=== PATIENT | female | born 1980 | race African-American/Black ===

== ENCOUNTER 2021-11-16 03:46 | Inpatient (IN) | payer BC, SELFPAY ==
[2021-11-16] VITALS (21 sets, daily range): BP systolic 155–190; BP diastolic 98–137; PULSE 80–106; RESP 17–27; TEMP 36.1–37.3; O2SAT 97–100; BMI 45.4
--- NOTE | ~2021-11-16 | MR_ITS ---
EXAMINATION: MR MRCP wo/w con/w 3D wo ind DATE: 11/17/2021 12:13 INDICATION: Liver mass. Abnormal liver function tests. TECHNIQUE: Magnetic resonance imaging (MRI) of the abdomen was performed without and with 20 mL Multi Leobardo intravenous contrast. Sequences included coronal T2-weighted FS FSE, coronal T2-weighted FSE, a xial T1-weighted LAVA, coronal FS FIESTA, axial dual-echo T1-weighted SPGR, coronal lava-FLEX, sagitt al T2-weighted FSE, axial T2-weighted FSE, and axial DWI. Thick-slab T2-weighted FSE images were obta ined for magnetic resonance cholangiopancreatography (MRCP). Maximum intensity projection 3-D reconst ructions of the volumetric data were created by the technologist. Postcontrast sequences included cor onal LAVA-flex and time course of axial T1-weighted LAVA. COMPARISON: CT abdomen and pelvis 11/16/2021, ultrasound 11/16/2021 FINDINGS: ABDOMEN MRI: There are trace pleural effusions. Cardiomegaly is noted. No pericardial effusion. There are cysts in the liver measuring up to 14 mm. There is sludge in the gallbladder, which is normal in size. The spleen, pancreas, adrenal glands, and kidneys are normal. There are no dilated loops of deb wel. There are no pathologically enlarged lymph nodes. There is no free intraperitoneal fluid. There are multiple uterine fibroids measuring up to 7.6 cm. ABDOMEN MRCP: The common duct is normal and measures 4 mm. IMPRESSION: 1. Benign cysts in the liver. Reviewed, dictated and finalized at location A.
--- NOTE | ~2021-11-16 | CT_ITS ---
EXAMINATION: CT abdomen pelvis wo con DATE: 11/16/2021 08:44 INDICATION: Upper abdominal pain. Nausea and vomiting. Kidney stone. TECHNIQUE: Computed tomography (CT) of the abdomen and pelvis was performed without intravenous contr ast. Automated exposure control and iterative reconstruction technique were employed. Exam dose: 118 9.97 mGy-cm total exam DLP. COMPARISON: None. FINDINGS: Cardiomegaly. Trace pericardial effusion. Mild bilateral pleural effusions, right greater t taveras left. 5 mm right lower lobe pulmonary nodule. There is atelectasis at the lung bases, greater on the left. There is edema of the abdominal and pelvic sawant. Large lipoma of the right parasagittal lower back., Measuring up to approximately 5 x 10 cm maximal d imension. There are scattered occasional indeterminate hypoattenuating up to 10 mm lesions of the liver. These might be hepatic cysts. Consider further evaluation with IV contrast CT examination or MRI. The gallbladder is present. There may be gallbladder wall thickening. No pericholecystic fluid or fat stranding. Consider gallbladder ultrasound for more definitive evaluation of the gallbladder, partic ularly given the complaint of upper abdominal pain and nausea and vomiting. No bile duct dilatation is detected. No pancreatic mass lesion, calcification or ductal dilatation. Normal splenic size. Normal morphology of the adrenal glands. No urinary tract calculus or hydroureteronephrosis. No renal space occupying mass lesion is evident o n this limited noncontrast examination. The urinary bladder is unremarkable. There is atherosclerotic calcification but normal caliber of the abdominal aorta and iliac arteries. No intraperitoneal or retroperitoneal or pelvic mass lesion or adenopathy is noted with the exception of a 5.5 cm left adnexal soft tissue mass, likely of ovarian origin. Differential diagnosis includes large serosal uterine fibroid. Consider pelvic ultrasound for further evaluation. The uterus is enlarged, measuring up to 13 cm height and 6.3 cm AP dimension. No bowel obstruction or intraperitoneal free air. Very small fat-containing umbilical hernia. 1.4 cm osteosclerotic lesion of L4, likely a bone island. Lumbar spinal stenosis. IMPRESSION: Cardiomegaly, mild bilateral pleural effusions, edema of the abdominal and pelvic sawant, consistent with probable congestive heart failure Trace pericardial effusion 5 mm right lower lobe pulmonary nodule Atelectasis at the lung bases, greater on the left Possible thickening of the gallbladder wall; gallbladder would be better evaluated by ultrasound exam ination No urinary tract calculus or hydroureteronephrosis Enlarged uterus 5.5 cm left adnexal soft tissue mass; diffusion diagnosis includes ovarian mass and subserosal uterin e fibroid; consider pelvic ultrasound examination Lumbar spinal stenosis Probable 1.4 cm bone island of L4 Reviewed, dictated and finalized at Location [facility]. Reviewed, dictated and finalized at location A. IMPRESSION: Cardiomegaly, mild bilateral pleural effusions, edema of the abdom inal and pelvic sawant, consistent with probable congestive heart failure Trace pericardial effusion 5 mm right lower lobe pulmonary nodule Atelectasis at the lung bases, greater on the left Possible thickening of the gallbladder wall; gallbladder would be better evalua gabbi by ultrasound examination No urinary tract calculus or hydroureteronephrosis Enlarged uterus 5.5 cm left adnexal soft tissue mass; diffusion diagnosis includes ovarian mass and subserosal uterine fibroid; consider pelvic ultrasound examination Lumbar spinal stenosis Probable 1.4 cm bone island of L4
--- NOTE | ~2021-11-16 | US_ITS ---
EXAMINATION: US pelvic complete DATE: 11/16/2021 14:08 INDICATION: Left adnexal mass Comparison:CT dated 11/16/2021 TECHNIQUE: Multiple transabdominal and endovaginal sonographic images of the pelvis performed. FINDINGS: The uterus measures 10.9 x 7.2 x 9.2 cm. Uterine echotexture is heterogeneous. There is an exophytic mass projecting from the uterus measuring 7.5 x 6 x 5.2 cm, consistent with uterine fibroid . There are multiple additional smaller fibroids. The endometrial complex measures 2.5. The right ovary measures 4.7 x 2.9 x 4.5 cm and the left ovary measures 2.6 x 4.4 x 3 cm. There are small follicles in each ovary. Normal doppler signal in both ovaries. There is no free fluid in the pelvis. There are no abnormal masses seen on either side. IMPRESSION: 1. Enlarged fibroid uterus, largest being exophytic measuring up to 7.5 cm, likely corresponding to t he recent CT finding. Reviewed, dictated and finalized at location A. IMPRESSION: 1. Enlarged fibroid uterus, largest being exophytic measuring up to 7.5 cm, lik broderick corresponding to the recent CT finding.
--- NOTE | ~2021-11-16 | US_ITS ---
EXAMINATION: 1. US FNA w image guidance 2. US FNA additional DATE: 11/18/2021 15:49 INDICATION: Thyroid nodules TECHNIQUE: The procedure and its benefits and risks were discussed with the patient. Risks specifically discusse d included bleeding. The patient verbalized understanding of the risks and agreed to proceed. The nec k was prepped and draped in the usual sterile manner. 1% lidocaine was used for local anesthesia. 6 passes were made with a 25G needle into the lesion in right thyroid lobe under ultrasound guidance. 6 passes were made with a 25-gauge needle into the lesion in left thyroid lobe under ultrasound joyce nce. There were no immediate complications. FINDINGS: Grayscale ultrasound images demonstrate needles advanced into a 1.7 cm nodule in right thyroid lobe f or biopsy. Grayscale ultrasound images demonstrate needles advanced into a 2.6 cm nodule in left thyr oid lobe for biopsy. IMPRESSION: 1. Ultrasound-guided fine needle aspiration of a right thyroid nodule. 2. Ultrasound-guided fine-needle aspiration of a left thyroid nodule. Reviewed, dictated and finalized at location A. IMPRESSION: 1. Ultrasound-guided fine needle aspiration of a right thyroid nodule. 2. Ultrasound-guided fine-needle aspiration of a left thyroid nodule.
--- NOTE | ~2021-11-16 | US_ITS ---
US abdomen limited INDICATION: Evaluate for cholecystitis. Abdominal pain. PROCEDURE: Realtime right upper abdominal ultrasound. COMPARISON: No prior studies for comparison. FINDINGS: The pancreas is normal without focal mass or pancreatic ductal dilation. There are multipl e hypoechoic masses of the liver, largest measuring 1.4 x 1.3 x 0.9 cm anteriorly. There is normal d irectional flow in the portal vein. Gallbladder wall is thickened measuring 7.5 mm. Common bile duct measures 5 mm. There is mild intrah epatic biliary dilatation. No sonographic Cantrell's sign. IMPRESSION: 1: Small hypoechoic masses of the liver, nonspecific, largest measuring up to 1.4 cm. Recommend corre lation with contrast-enhanced MRI for further assessment. 2: Mild gallbladder wall thickening. This could indicate interstitial edema, chronic liver disease or chronic cholecystitis. 3: Mild intrahepatic biliary dilatation. Reviewed, dictated and finalized at location A. IMPRESSION: 1: Small hypoechoic masses of the liver, nonspecific, largest measuring up to 1 .4 cm. Recommend correlation with contrast-enhanced MRI for further assessment. 2: Mild gallbladder wall thickening. This could indicate interstitial edema, ch ronic liver disease or chronic cholecystitis. 3: Mild intrahepatic biliary dilatation.
--- NOTE | ~2021-11-16 | XR_ITS ---
EXAMINATION: XR chest 2V DATE: 11/16/2021 04:30 INDICATION: Shortness of breath. Nausea. TECHNIQUE: Frontal and lateral views of the chest were obtained. COMPARISON: None. FINDINGS: There is no pneumonia, pleural effusion, or pneumothorax. Cardiomegaly is noted. IMPRESSION: 1. Cardiomegaly. Reviewed, dictated and finalized at location A. IMPRESSION: 1. Cardiomegaly.
--- NOTE | ~2021-11-16 | XR_ITS ---
XR chest 1V portable DATE: 11/16/2021 10:01 INDICATION: Congestive heart failure. Uncontrolled hypertension. TECHNIQUE: Portable upright AP chest on 11/16/2021 at 0955 hours COMPARISON: 11/16/2021 2 view chest FINDINGS: Cardiomegaly. Pulmonary vascular congestion and redistribution. Mild infiltrate or atelectasis at the lung bases. No pneumothorax. IMPRESSION: Cardiomegaly, congestive heart failure Mild bibasilar infiltrate or atelectasis Reviewed, dictated and finalized at location A.
--- NOTE | ~2021-11-16 | US_ITS ---
EXAMINATION: US thyroid DATE: 11/17/2021 12:33 INDICATION: Thyroid nodule. TECHNIQUE: Multiple ultrasound images of the thyroid were obtained. COMPARISON: None. FINDINGS: The right thyroid lobe measures 4.9 x 1.7 x 1.6 cm. The left thyroid lobe measures 5.7 x 1.9 x 2.2 c m. In the right thyroid lobe, there is a 1.7 cm solid, hypoechoic, wider than tall nodule with connie h margin without echogenic foci (TI-RADS TR4). In the left thyroid lobe, there is a 2.6 cm solid, hyp oechoic, wider than tall nodule with smooth margin and punctate echogenic foci (TR5). IMPRESSION: 1. Multinodular goiter. Ultrasound-guided fine-needle aspiration of 2 nodules is recommended. Reviewed, dictated and finalized at location A. IMPRESSION: 1. Multinodular goiter. Ultrasound-guided fine-needle aspiration of 2 nodules i s recommended.
[2021-11-16 04:13] LABS: Basophils Percent Auto 0.4 % (0.2-1.2); Eosinophils Absolute Auto 0.1 K/mm3 (0-0.3); Eosinophils Percent Auto 0.9 % (0-4.4); Hematocrit 35.6 % (37.0-47.0); Hemoglobin 9.6 g/dL (12.0-15.0); Immature Granulocyte Absolute 0.03 K/mm3 (0.00-0.031); Immature Granulocyte Percent A 0.3 % (0-0.5); Immature Platelet Fraction Pct 4.1 % (0.9-11.2); Lymphocytes Absolute Auto 0.88 K/mm3 (0.9-3.2); Lymphocytes Percent Auto 9.7 % (18.3-44.2); Mean Corpuscular Volume 74.2 fl (80-100); Mean Platelet Volume 10.4 fl (7.4-10.4); Monocytes Absolute Auto 0.8 K/mm3 (0.1-0.6); Monocytes Percent Auto 8.3 % (2.6-8.5); Neutrophils Absolute Auto 7.3 K/mm3 (1.3-6.7); Neutrophils Percent Auto 80.4 % (45.5-73.1); Platelet Count Result 329 k/mm3 (150-375); Red Cell Distribution Width 26.1 % (11.5-14.5)
[2021-11-16 04:22] LABS: Alanine Aminotransferase 44 U/L (6-35); Alkaline Phosphatase 137 U/L (38-126); Anion Gap 8 mmol/L (8-16); Aspartate Amino Transferase 52 U/L (14-36); Bilirubin,Total 1.3 mg/dL (0.2-1.3); Blood Urea Nitrogen 21 mg/dL (7-17); Calcium 8.7 mg/dL (8.4-10.2); Carbon Dioxide 24 mmol/L (22-30); Chloride 109 mmol/L (98-107); Estimated CRCL calculation 66 ml/min; Estimated Glomerular Filt Rate 50; Glucose 136 mg/dL (65-110); Potassium 4.3 mmol/L (3.4-5.0); Sodium 141 mmol/L (137-145)
--- NOTE | 2021-11-16 07:18 | ED.SOB ---
HPI - SOB/Dyspnea General Chief Complaint: Shortness of Breath/Dyspnea Stated Complaint: Shortness of Breath Time Seen by Provider: 11/16/21 07:18 Source: patient Mode of arrival: ambulatory Limitations: no limitations History of Present Illness HPI Narrative: 41 years old -[place] female presents with intermittent nausea, vomiting right lower quadrant pain since October 03, 2021. She denies any fever, chills, diarrhea, constipation, vaginal bleeding or discharge. History of hypertension, ran out of her medication over 1 year ago, also history of fibroid tumor. Patient does not smoke or drink or uses drugs.. Patient reports that she does not have pain on the outside surface of the abdomen but she feels like something is growing inside. Related Data Home Medications Medication Instructions Recorded Confirmed No Home Medications 11/16/21 11/16/21 Allergies Allergy/AdvReac Type Severity Reaction Status Date / Time cephalexin [From Keflex] Allergy Unknown Verified 11/16/21 08:35 Review of Systems Review of Systems: All systems reviewed & are unremarkable except as noted in HPI and below Exam Narrative: General appearance: Well-developed, well-nourished Skin: Normal color Head: Normocephalic, nontraumatic Eyes: Clear conjunctiva ENT: Oropharynx normal, ears normal, nose normal Neck: Supple, nontender Chest and respiratory: Airway patent, no respiratory distress, no accessory muscle use Heart: Regular rate/rhythm Abdomen: Soft, nontender, no organomegaly, quiet bowel sounds Vascular: Normal peripheral pulses, normal capillary refill. Musculoskeletal: Normal range of motion, nontender back Neurologic: Alert and oriented ?3, FLYING II INSTRUCTOR is normal as tested, no gross motor deficit Course Course Emergency Course: Patient arrived with shortness of breath and abdominal pain, work-up showed that the patient had congestive heart failure secondary to hypertension, elevated troponin secondary to CHF, bilateral pleural effusion and pericardial effusion secondary to CHF, left adnexal mass needs further evaluation, pelvic ultrasound, thick wall of the gallbladder, needs gallbladder ultrasound to rule out cholecystitis. Admit to IMU, consult Dr. Mazariegos Vital Signs Vital signs: Vital Signs Temperature 36.1 C L 11/16/21 03:54 Pulse Rate 106 H 11/16/21 03:54 Respiratory Rate 20 11/16/21 03:54 Blood Pressure 190/137 H 11/16/21 03:54 Pulse Oximetry 100 11/16/21 03:54 Oxygen Delivery Room Air 11/16/21 03:54 Temperature 36.1 C L 11/16/21 03:54 Pulse Rate 87 11/16/21 14:46 Respiratory Rate 22 H 11/16/21 14:46 Blood Pressure 173/98 H 11/16/21 14:46 Pulse Oximetry 100 11/16/21 14:46 Oxygen Delivery Room Air 11/16/21 07:48 MDM - SOB/Dyspnea MDM Narrative Medical decision making narrative: Appendicitis, fibroid tumor, constipation, urinary tract infection Lab Data Result diagrams: 11/16/21 04:02 11/16/21 04:02 Labs: Lab Results 11/16/21 11/16/21 11/16/21 Range/Units 04:02 04:02 04:02 WBC 9.0 (4.5-10.0) K/mm3 RBC 4.80 (4.2-5.4) M/mm3 Hgb 9.6 L (12.0-15.0) g/dL Hct 35.6 L (37.0-47.0) % MCV 74.2 L (80-100) fl MCH 20.0 L (26-34) pg MCHC 27.0 L (32-36) g/dl RDW 26.1 H (11.5-14.5) % Plt Count 329 (150-375) k/mm3 MPV 10.4 (7.4-10.4) fl Immature Gran % (Auto) 0.3 (0-0.5) % Neut % (Auto) 80.4 H (45.5-73.1) % Lymph % (Auto) 9.7 L (18.3-44.2) % [place] % (Auto) 8.3 (2.6-8.5) % Eos % (Auto) 0.9 (0-4.4) % Baso % (Auto) 0.4 (0.2-1.2) % Lymph # (Auto) 0.88 L (0.9-3.2) K/mm3 [place] # (Auto) 0.8 H (0.1-0
[2021-11-16] MEDS: LABETALOL HCL INJ 100 MG/20 ML VIAL 20 MG IV PUSH (08:22)
[2021-11-16] MEDS: NITROGLYCERIN OINTMENT 1 INCH DOSE TRANSDERM ×3 (08:24→17:48)
--- NOTE | 2021-11-16 09:33 | ECG_ITS ---
Measurements Intervals [place] Rate: 84 P: 31 DC: 143 QRS: 0 QRSD: 93 T: 136 QT: 371 QTc: 440 Interpretive Statements SINUS RHYTHM DELAYED PRECORDIAL R/S TRANSITION ST-T WAVE ABNORMALITY IN HIGH LATERAL LEADS- CONSIDER ISCHEMIA ABNORMAL ECG Electronically Signed On 11-16-2021 14:26:18 CDT by Gildardo Tsai D.O.
[2021-11-16 09:51] LABS: Alveolar/Arterial O2 Gradient 15.9 mmHg; Base Excess ABG -2.8 mEq/l (+/-2.0); Fractional Inspired Oxygen 21 %; HCO3 ABG 20.3 mEq/l (22.0-26.0); Oxygen Content ABG 14.6 %vol (16.0-22.0); Oxygen Saturation ABG 97.8 % (95.0-100.0); Oxyhemoglobin 95.9 % THb (90.0-100.0); PCO2 ABG 29.9 mmHg (35.0-45.0); PO2 FiO2 Ratio Arterial Blood 4.67 %; Total Hemoglobin 10.7 g/dL (12.0-18.0)
[2021-11-16 09:52] LABS: Device ROOM AIR; Modified Allen's Test Pass; Site Drawn RIGHT RADIAL
[2021-11-16 10:04] LABS: INR 1.3; Prothrombin Time 15.5 Seconds (11.1-14.7)
[2021-11-16 10:06] LABS: Partial Thromboplastin Time 31.1 SECONDS (22.3-36.8)
[2021-11-16 10:38] LABS: NT Pro B Type Natriuretic Pept 4060 pg/mL (5-100); Troponin I 0.047 ng/mL (0.000-0.034)
[2021-11-16 10:49] LABS: SARS-CoV-2 RNA PCR Negative
[2021-11-16] MEDS: ASPIRIN 81 MG CHEWABLE TABLET 324 MG PO (11:29)
[2021-11-16] MEDS: FUROSEMIDE INJ 100 MG/10 ML VIAL 80 MG IV PUSH (11:32)
[2021-11-16] MEDS: ENOXAPARIN 120 MG/0.8 ML SYRINGE 110 MG SUB-Q (14:00)
[2021-11-16 14:53] LABS: Troponin I 0.045 ng/mL (0.000-0.034)
[2021-11-16] MEDS: LORazepam INJ (*CRX) 2 MG/ML VIAL 1 MG IV PUSH (16:38)
[2021-11-16 17:17] LABS: Troponin I 0.047 ng/mL (0.000-0.034)
--- NOTE | 2021-11-16 17:50 | PM.IMHP ---
H&P: HPI History of Present Illness Date/Time: 11/16/21 17:50 Chief Complaint: Shortness of breath Narrative: 32yo female with HTN here for shortness of breath. Patient has had shortness of breath since she was diagnosed with COVID May 2021. She did not seek medical care. She was vaccinated 1 year ago but has not been boosted. Since that time, she has noted progressive worsening shortness of breath with exertion to the poinit she has difficulty walking 10 ft. Patient still has a dry nonproductive cough that occurs when she exerts herself. More recently patient has developed nausea and vomiting associated with her menstrual cycle and abdominal cramping. She was seen at [place] on October 02 in the ED. She states no evaluation was done but that she was discharged with Gas-X and Zofran. She did see her doctor in October and battery labs was performed which showed that she was anemic with a hemoglobin of 7.8. Patient was started on iron. Blood pressure at that visit was 132/88. She mentioned that the time that she used to be on hydrochlorothiazide but has been off for about a year. Primary care doctor however did not resume any antihypertensive medications at that time. The patient does check her blood pressure at home and has been running 130-140/80-90 in October. Last blood pressure was 143/84 on November 11. Patient more recently has developed right lower quadrant pain seems worse with sitting. She denies any fever or chills. No headaches. No chest pain. No pedal edema or calf pain. She did have 1 episode of palpitations early September for about an hour that improved when she used a cold towel. She did not seek medical care at that time. This has not recurred. The right lower quadrant pain seems worse with sitting. She is not on oral contraception. There has been no vaginal spotting between periods, vaginal discharge, melena, hematochezia, dysuria or hematuria. No diarrhea or constipation issues. She does have known uterine fibroids. She has been twice but had miscarriages both times at roughly 12 weeks. Patient presented this morning to the ED for the nausea, vomiting, right lower quadrant pain and shortness of breath. In the ED, blood pressure was 190/137 with pulse 106. She had a microcytic anemia with a hemoglobin 9.6. ABG was normal. BUN was 21 with a creatinine 1.2. AST and ALT were mildly elevated. BNP was 4000. Troponin is elevated 0.047 but flat on repeat. COVID test was negative. EKG showed normal sinus rhythm with delayed R-wave progression and ST T wave changes in lateral leads. Chest x-ray showed cardiomegaly. CT of the abdomen pelvis showed cardiomegaly, pericardial effusion, bilateral pleural effusions, right lower lobe pulmonary nodule, abdominal pelvic wall edema. Also of note was multiple liver lesions. The gallbladder wall was thickened. There is a 5.5 cm left adnexal soft tissue mass. And lumbar spinal stenosis. Repeat chest x-ray shows cardiomegaly and congestive heart failure. Pelvic ultrasound showed enlarged fibroid uterus which was felt to be what was seen on the CT scan. RUQ ultrasound showed a small hypoechoic masses of the liver largest being 1.4 cm. Mild gallbladder wall thickening and mild intrahepatic biliary ductal dilatation. She was treated with labetalol, Lasix, nitro paste and aspirin. She was given full-dose Lovenox once as well as Ativan. She was admitted to the IMU for further care. Patient was seen later in the evening and feels much better. The right lower quadrant pain has resolved. Review of Systems Review of Systems: All systems reviewed & are unremarkable except as noted in HPI and below PMFSH Past Medical History Medical History (Updated 11/16/21 @ 19:25 by Antonino Modi MD) HTN (hypertension), benign Iron deficiency anemia Surgical History Surgical History (Updated 11/16/21 @ 18:53 by Antonino Modi MD) No history of previous surgery Family History Fam
--- NOTE | 2021-11-16 17:55 | ADMGEN ---
This patient, Aditya Adams, was admitted to IMU Room 209-01. Patient/family oriented to hospital policies and general routines including ID bracelet, bed and alarms, visiting hours, pain management, procedures, bathroom and other care routines, personal items, smoking policy, room service/diet, and visiting hours. Information on how to activate the Rapid Response Team has been discussed. Patient/Family are encouraged to report perceived risks to care and to ask questions if they do not understand what they are told or what they should do.
[2021-11-16] MEDS: amLODIPine BESYLATE 5 MG TABLET PO (20:36)
[2021-11-16] MEDS: FUROSEMIDE INJ 40 MG/4 ML VIAL IV PUSH (20:36)
[2021-11-16 22:00] LABS: Appearance Urine Clear (Clear); Bilirubin Urine Negative (Negative); Blood Urine Negative (Negative); Color Urine Yellow (Yellow); Glucose Urine UA Negative (Negative); Ketones Urine Negative (Negative); Leukocyte Esterase Ur Negative LEU/UL (Negative); Nitrate Urine Negative (Negative); Protein Urine Negative (Negative); Urobilinogen Urine 0.2 mg/dL (<2.0)
[2021-11-16 22:03] LABS: Add Urine Microscopic? NO
[2021-11-17] VITALS (15 sets, daily range): BP systolic 154–176; BP diastolic 96–116; PULSE 79–102; RESP 14–28; TEMP 36.1–36.8; O2SAT 97–100
--- NOTE | 2021-11-17 | ECHO_ITS ---
Patient Info Name: Aditya Adams Age: 41 years : 1980 Gender: Female Ht: 62 in Wt: 248 lbs BSA: 2.29 m2 HR: 92 bpm BP: 173 / 110 mmHg Heart Rhythm: Sinus Rhythm Exam Date: 11/17/2021 8:50 AM Exam Location: [facility] Patient Status: Inpatient Admit Date: 11/16/2021 Staff Ordering Physician: Antonino Modi MD Compounder: Byron Cantrell, MARINA, RT Attending Provider: Antonino Modi MD Exam Type: CA echo dop color flow w con Study Info Indications I50.9 - Heart failure, unspecified Complete two-dimensional, color flow and Doppler transthoracic echocardiogram is performed with contrast to opacify the left ventricle and to improve the deliniation of the left ventricle endocardial borders. Strain analysis performed. Summary 1. Left ventricular chamber dimension is mildly enlarged. 2. Left ventricular systolic function is severely reduced, estimated at 30%. 3. There is moderately increased left ventricular wall thickness. 4. The left ventricular diastolic function is abnormal. 5. Global longitudinal strain is severely elevated at -7 %. 6. Left atrial chamber dimension is moderately enlarged. 7. There is no aortic valve stenosis. 8. There is mild to moderate mitral valve regurgitation. 9. There is mild tricuspid valve regurgitation. 10. Moderate pulmonary hypertension, estimated pulmonary arterial systolic pressure is 59 mmHg. 11. There is small pericardial effusion. Left Ventricle Left ventricular chamber dimension is mildly enlarged. Left ventricular systolic function is severely reduced, estimated at 30%. There is moderately increased left ventricular wall thickness. The left ventricular diastolic function is abnormal. Global longitudinal strain is severely elevated at -7 %. Right Ventricle Right ventricular chamber dimension is normal. Right ventricular systolic function is normal. Prominent moderator band. Left Atria Left atrial chamber dimension is moderately enlarged. Right Atria Right atrial chamber dimension is mildly enlarged. Aortic Valve The aortic valve is probable trileaflet. There is no aortic valve stenosis. There is no aortic valve regurgitation. Pulmonic Valve The pulmonic valve is not well visualized. There is trace pulmonic regurgitation. Mitral Valve The mitral valve has normal leaflets. There is mild to moderate mitral valve regurgitation. Tricuspid Valve The tricuspid valve leaflets are normal. There is mild tricuspid valve regurgitation. Moderate pulmonary hypertension, estimated pulmonary arterial systolic pressure is 59 mmHg. Pericardium/Pleural The pericardium appears normal. There is small pericardial effusion. Inferior Vena Cava Dilated inferior vena cava with <50% collapse upon inspiration consistent with elevated right atrial pressure, 10 mmHg. Aorta The aortic root size at the sinus of Valsalva is normal. Left Ventricular Outflow Tract Name Value Normal LVOT 2D LVOT Diameter 2.11 cm LVOT Doppler LVOT Peak Gradient 4 mmHg LVOT Mean Gradient 2 mmHg LVOT VTI
[2021-11-17] MEDS: NITROGLYCERIN OINTMENT 1 INCH DOSE TRANSDERM ×2 (00:14→06:36)
[2021-11-17 05:39] LABS: Basophils Percent Auto 0.4 % (0.2-1.2); Eosinophils Absolute Auto 0.2 K/mm3 (0-0.3); Eosinophils Percent Auto 1.8 % (0-4.4); Hematocrit 32.9 % (37.0-47.0); Hemoglobin 9.2 g/dL (12.0-15.0); Immature Granulocyte Absolute 0.03 K/mm3 (0.00-0.031); Immature Granulocyte Percent A 0.4 % (0-0.5); Immature Platelet Fraction Pct 4.3 % (0.9-11.2); Lymphocytes Absolute Auto 1.28 K/mm3 (0.9-3.2); Lymphocytes Percent Auto 15.4 % (18.3-44.2); Mean Corpuscular Hemoglobin 20.3 pg (26-34); Mean Corpuscular Volume 72.5 fl (80-100); Mean Platelet Volume 10.5 fl (7.4-10.4); Monocytes Absolute Auto 1.1 K/mm3 (0.1-0.6); Monocytes Percent Auto 12.7 % (2.6-8.5); Neutrophils Absolute Auto 5.8 K/mm3 (1.3-6.7); Neutrophils Percent Auto 69.3 % (45.5-73.1); Platelet Count Result 317 k/mm3 (150-375); Red Blood Count 4.54 M/mm3 (4.2-5.4); Red Cell Distribution Width 25.5 % (11.5-14.5); White Blood Count 8.3 K/mm3 (4.5-10.0)
[2021-11-17 05:57] LABS: Alanine Aminotransferase 36 U/L (6-35); Albumin Level 3.7 g/dL (3.5-5.1); Alkaline Phosphatase 116 U/L (38-126); Anion Gap 9 mmol/L (8-16); Aspartate Amino Transferase 31 U/L (14-36); Bilirubin,Total 2.1 mg/dL (0.2-1.3); Blood Urea Nitrogen 16 mg/dL (7-17); CRP 0.5 mg/dL (<1.0); Calcium 8.4 mg/dL (8.4-10.2); Carbon Dioxide 26 mmol/L (22-30); Chloride 102 mmol/L (98-107); Estimated CRCL calculation 67 ml/min; Estimated Glomerular Filt Rate > 60; Glucose 78 mg/dL (65-110); Magnesium 1.7 mg/dL (1.6-2.3); Potassium 3.3 mmol/L (3.4-5.0); Sodium 137 mmol/L (137-145)
[2021-11-17 06:27] LABS: Iron 24 ug/dL (37-170)
[2021-11-17 06:33] LABS: Hypochromasia 1+ (NORMAL); Platelet Estimate Adequate (Adequate)
[2021-11-17 06:34] LABS: Anisocytosis 2+ (NORMAL); Ovalocytes 2+ (NORMAL); Target Cells 1+ (NORMAL)
[2021-11-17 06:37] LABS: Percent Iron Saturation 6 % (20-50)
[2021-11-17 07:00] LABS: Folic Acid > 20.0 ng/mL (2.76->20); Hepatitis B Surface Antigen Negative (Negative)
[2021-11-17 07:06] LABS: Hepatitis B Core IgM Result Negative (Negative)
[2021-11-17 07:18] LABS: Hepatitis B Surface Anti Res Negative; Hepatitis C Virus Antibody Negative (Negative)
[2021-11-17 07:33] LABS: Complement C3 101 mg/dL (88-165)
--- NOTE | 2021-11-17 08:00 | ECG_ITS ---
Measurements Intervals [place] Rate: 89 P: 41 [place]: 139 QRS: -1 QRSD: 94 T: 152 QT: 356 QTc: 433 Interpretive Statements SINUS RHYTHM DELAYED PRECORDIAL R/S TRANSITION ST-T WAVE ABNORMALITY IN HIGH LATERAL LEADS- CONSIDER ISCHEMIA ABNORMAL ECG Electronically Signed On 11-17-2021 10:51:07 CDT by Gildardo Tsai D.O.
[2021-11-17] MEDS: PERFLUTREN LIPID MICROSPHERES 1.5 ML VIAL DILUTED TO 10 ML TOTAL VOLUME IV PUSH (09:00)
--- NOTE | 2021-11-17 09:00 | IVDEFINITY ---
Prior to administration of IV Definity the patient was educated on the risks and benefits of the imaging enhancing agent including potential adverse side effects. The patient verbalized understanding. Allergies were verified. No exclusion criteria were identified and at least one of the following inclusion criteria were met: 1) physician request, 2) patient technically difficult to image (per the [place] [employer] guidelines of two or more segments not discernable within the apical view), or 3) questionable left ventricular function. ?
[2021-11-17 09:14] LABS: Bilirubin Indirect 1.7 mg/dL (0-1.1)
[2021-11-17] MEDS: amLODIPine BESYLATE 5 MG TABLET 10 MG PO (09:46)
[2021-11-17] MEDS: hydroCHLOROthiazide 25 MG TABLET PO (09:46)
[2021-11-17] MEDS: POTASSIUM CHLORIDE 20 MEQ TABLET 40 MEQ PO (09:47)
[2021-11-17] MEDS: ENOXAPARIN 40 MG/0.4 ML SYRINGE SUB-Q (09:47)
[2021-11-17] MEDS: ASPIRIN 81 MG CHEWABLE TABLET PO (09:47)
--- NOTE | 2021-11-17 11:17 | PCNSR ---
On 11/17/21, the student,Anahi Jamil, provided care and completed [facility] documentation on this patient. I have reviewed the student's documentation and agree with the findings.
--- NOTE | 2021-11-17 12:45 | PM.CNCAR ---
Assessment and Plan Assessment and plan (1) Acute heart failure with reduced ejection fraction and diastolic dysfunction: Code(s): I50.41 - Acute combined systolic (congestive) and diastolic (congestive) heart failure Status: Acute Assessment and Plan: New diagnosis severe LV systolic dysfunction EF 30% with moderate concentric LVH, mild LV enlargement moderate left atrial enlargement [id number] MR mild TR moderate pulmonary hypertension RVSP 59 mm Hg. There is a small pericardial effusion without tamponade physiology. Right ventricular size and systolic function within normal limits. She reports no symptoms suggestive of angina lower she have a history of CAD. Precise etiology of her LV dysfunction remains unclear although more likely nonischemic etiology. Possibly related to longstanding uncontrolled hypertension, history of COVID/infectious etiology, secondary to systemic inflammatory condition as yet diagnosed, and or idiopathic. Agree with additional workup for amyloid/sarcoid, lupus given history of recurrent miscarriages and CT findings. Clinically, patient is much improved with IV diuresis nearing her baseline. Monitor renal function and urine output closely. May hold off on diuretic therapy. Optimize guideline directed medical therapy. Discontinue hydrochlorothiazide and amlodipine. Initiate carvedilol 3.125 mg twice daily, Entresto 24/26 mg b.i.d., spironolactone 25 mg daily. Jardiance 10 mg daily. Consider cardiac MRI as outpatient further workup. Will also discuss left and right heart catheterization risks and benefits. DVT prophylaxis Apnea link overnight to screen for AYLA. (2) Hypertension, uncontrolled: Code(s): I10 - Essential (primary) hypertension Status: Acute Assessment and Plan: Improved although not ideal. Will observe response with above changes. (3) Elevated troponin: Code(s): R77.8 - Other specified abnormalities of plasma proteins Status: Acute Assessment and Plan: Mild flat troponin elevation not consistent with acute coronary syndrome and/or plaque rupture likely secondary to severe LV dysfunction, CHF, and uncontrolled hypertension presentation type 2 infarction. (4) Iron deficiency anemia: Code(s): D50.9 - Iron deficiency anemia, unspecified Status: Acute Assessment and Plan: Iron supplementation. Workup and management per primary service. (5) History of COVID-19: Code(s): Z86.16 - Personal history of COVID-19 Status: Acute Assessment and Plan: Unclear how this relates to her LV dysfunction possible contribution due to COVID with reported history of longstanding shortness of breath subsequently although worsening prior to admission. (6) Morbid obesity with BMI of 45.0-49.9, adult: Code(s): E66.01 - Morbid (severe) obesity due to excess calories; Z68.42 - Body mass index [BMI] 45.0-49.9, adult Status: Acute Assessment and Plan: Lifestyle and diet modification counseling. History of Present Illness History of Present Illness Consult date/time: Date of service: 11/17/21 12:45 Cardiology consultation at the request of Dr. Modi for opinion regarding CHF, shortness of breath Requesting physician: Antonino Modi MD Reason For Visit: chf,uncontrolled hypertension,bilateral pleural ef Narrative: Patient is a very pleasant 41-year-old female with a past medical history significant for hypertension an COVID-19 infection May 2021 resulting persistent shortness of breath. She had noted over the past 2 months she has had progressive exertional dyspnea intermittently but becoming much more frequent and limiting. She would experience significant difficulty walking across the room to the restroom having to rest to catch her breath. She also admitted to orthopnea intermittently up to 3-4 pillows to get comfortable. She admits should nonproductive cough intermittently. She has had re
--- NOTE | 2021-11-17 15:07 | PC.NURSE ---
[facility] flyer was given to patient.
--- NOTE | 2021-11-17 17:49 | PM.IMPN ---
Progress Note: A&P Assessment and Plan (1) Acute CHF: Code(s): I50.9 - Heart failure, unspecified Status: Acute Assessment and Plan: Chest x-ray shows cardiomegaly and congestive heart with a basilar infiltrate. BNP was 4000. Echo showing EF 30% with abnormal diastolic function and moderate pulmonary HTN. Moderate MR noted. Could be related to uncontrolled hypertension. Consider also stress, viral or autoimmune/infiltative process. She is having clinical improvement with the IV Lasix. Cardiology following. Spironolactone, Entresto and Coreg started. Add Jardiance. Apnea link ordered. (2) Hypertension, uncontrolled: Code(s): I10 - Essential (primary) hypertension Status: Acute Assessment and Plan: Blood pressure at home was reasonably well controlled with systolic running 130-140 up until just a few days ago. Unclear why her blood pressure is now markedly elevated at 190/137 on admission. BP lower but still not at goal. Follow with the above changes. Adjust slowly. (3) Elevated troponin: Code(s): R77.8 - Other specified abnormalities of plasma proteins Status: Acute Assessment and Plan: Patient with mildly elevated troponin. Repeat troponin showing flat pattern. EKG showing poor R progression and lateral lead ST T wave changes. Probably related to the acute CHF. Doubt ACS. (4) Anasarca: Code(s): R60.1 - Generalized edema Status: Acute Assessment and Plan: Patient appears to have fluid overload by CT scan showing trace pericardial effusion, mild bilateral pleural effusions, abdominal wall edema and pelvic wall edema. No mention of ascites. UA not showing proteinuria. She has pedal edema noted on exam. [place] related to acute systolic and diastolic CHF. Consider amyloid or sarcoid in the differential. Will also consider SLE given the loss of her pregnancies. Check DOUG levels. PAXTON pending. Complement levels okay. She is agreeable for HIV test. Tolerating diuresis. Follow (5) Iron deficiency anemia: Code(s): D50.9 - Iron deficiency anemia, unspecified Status: Acute Assessment and Plan: Patient noted to be iron deficient here. She has been on iron for this. Hemoglobin is 9.2 today which is improved from 7.8 in October. Add back her oral iron Follow (6) Thyroid nodule: Code(s): E04.1 - Nontoxic single thyroid nodule Status: Acute Assessment and Plan: Possible thyroid nodule appreciated on exam. Thyroid ultrasound showing multinodular goiter. Ultrasound-guided fine-needle aspiration of 2 nodules is recommended. TSH normal. She is agreeable for thyroid biopsy which we will order for tomorrow. (7) Adnexal mass: Code(s): N94.89 - Other specified conditions associated with female genital organs and menstrual cycle Status: Acute Assessment and Plan: Adnexal mass noted on CT most likely uterine fibroid as noted by ultrasound. Urine test was negative. Recommended patient follow-up with OBGYN to discuss options regarding the fibroids Also recommended that she discuss with her OBGYN about the perimenstrual nausea which is probably related to her cycle. (8) Elevated LFTs: Code(s): R79.89 - Other specified abnormal findings of blood chemistry Status: Acute Assessment and Plan: LFTs mildly elevated. Probably related to congestive changes. Hepatitis panel negative. LFTs better except elevated TBili that is mostly indirect. [place]? Follow (9) Liver nodule: Code(s): K76.89 - Other specified diseases of liver Status: Acute Assessment and Plan: Right upper quadrant ultrasound was performed showing mild gallbladder wall thickening felt related to the interstitial edema given the above other findings. Consider chronic cholecystitis given her nausea vomiting but patient is quite sure that the nausea only occurs around her menses and not other times. T
[2021-11-17] MEDS: SACUBITRIL/VALSARTAN 24-26 MG TABLET 1 TAB PO (20:59)
[2021-11-17] MEDS: carvediloL 3.125 MG TABLET PO (20:59)
[2021-11-18] VITALS (17 sets, daily range): BP systolic 101–170; BP diastolic 63–106; PULSE 48–97; RESP 16–26; TEMP 35.8–36.8; O2SAT 96–100
[2021-11-18 05:55] LABS: Basophils Percent Auto 0.3 % (0.2-1.2); Eosinophils Absolute Auto 0.3 K/mm3 (0-0.3); Eosinophils Percent Auto 2.9 % (0-4.4); Hematocrit 39.5 % (37.0-47.0); Hemoglobin 10.8 g/dL (12.0-15.0); Immature Granulocyte Absolute 0.02 K/mm3 (0.00-0.031); Immature Granulocyte Percent A 0.2 % (0-0.5); Immature Platelet Fraction Pct 4.4 % (0.9-11.2); Lymphocytes Absolute Auto 0.84 K/mm3 (0.9-3.2); Lymphocytes Percent Auto 9.4 % (18.3-44.2); Mean Corpuscular HGB Conc 27.3 g/dl (32-36); Mean Corpuscular Hemoglobin 20.1 pg (26-34); Mean Corpuscular Volume 73.4 fl (80-100); Mean Platelet Volume 10.6 fl (7.4-10.4); Monocytes Absolute Auto 1.1 K/mm3 (0.1-0.6); Monocytes Percent Auto 12.6 % (2.6-8.5); Neutrophils Absolute Auto 6.7 K/mm3 (1.3-6.7); Neutrophils Percent Auto 74.6 % (45.5-73.1); Platelet Count Result 362 k/mm3 (150-375); Red Blood Count 5.38 M/mm3 (4.2-5.4); Red Cell Distribution Width 25.9 % (11.5-14.5)
[2021-11-18 06:07] LABS: Alanine Aminotransferase 35 U/L (6-35); Albumin Level 4.3 g/dL (3.5-5.1); Alkaline Phosphatase 118 U/L (38-126); Anion Gap 7 mmol/L (8-16); Aspartate Amino Transferase 27 U/L (14-36); Bilirubin,Total 2.2 mg/dL (0.2-1.3); Blood Urea Nitrogen 11 mg/dL (7-17); Calcium 9.1 mg/dL (8.4-10.2); Carbon Dioxide 29 mmol/L (22-30); Chloride 103 mmol/L (98-107); Estimated CRCL calculation 78 ml/min; Estimated Glomerular Filt Rate > 60; Glucose 106 mg/dL (65-110); Magnesium 1.8 mg/dL (1.6-2.3); Potassium 3.8 mmol/L (3.4-5.0); Sodium 139 mmol/L (137-145)
--- NOTE | 2021-11-18 07:22 | PM.PNCARD ---
Progress Note: A&P Assessment and Plan (1) Acute heart failure with reduced ejection fraction and diastolic dysfunction: Code(s): I50.41 - Acute combined systolic (congestive) and diastolic (congestive) heart failure Status: Acute Assessment and Plan: New diagnosis severe LV systolic dysfunction EF 30% with moderate concentric LVH, mild LV enlargement moderate left atrial enlargement [id number] MR mild TR moderate pulmonary hypertension RVSP 59 mm Hg. Right ventricular size and systolic function within normal limits. Clinically, patient is much improved with IV diuresis and appears euvolemic on exam today. Optimize guideline directed medical therapy with Entresto, spironolactone, Jardiance, coreg. Discussed the concept of LifeVest with her, she wishes to proceed with this. LifeVest order placed. Consider cardiac MRI as outpatient further workup. Agree with additional workup for amyloid/sarcoid, lupus given history of recurrent miscarriages and CT findings. AHI 10 on apnea link. Recommend OP sleep study. Close outpatient follow up (2) Hypertension, uncontrolled: Code(s): I10 - Essential (primary) hypertension Status: Acute Assessment and Plan: Not at goal but improved with addition of Entresto, spironolactone. Will advance coreg dose to 6.25mg b.i.d. today. (3) Elevated troponin: Code(s): R77.8 - Other specified abnormalities of plasma proteins Status: Acute Assessment and Plan: Mild flat troponin elevation not consistent with acute coronary syndrome and/or plaque rupture likely secondary to severe LV dysfunction, CHF, and uncontrolled hypertension presentation type 2 infarction. (4) Iron deficiency anemia: Code(s): D50.9 - Iron deficiency anemia, unspecified Status: Acute Assessment and Plan: Iron supplementation. Workup and management per primary service. (5) History of COVID-19: Code(s): Z86.16 - Personal history of COVID-19 Status: Acute Assessment and Plan: Unclear how this relates to her LV dysfunction possible contribution due to COVID with reported history of longstanding shortness of breath subsequently although worsening prior to admission. (6) Morbid obesity with BMI of 45.0-49.9, adult: Code(s): E66.01 - Morbid (severe) obesity due to excess calories; Z68.42 - Body mass index [BMI] 45.0-49.9, adult Status: Acute Assessment and Plan: Lifestyle and diet modification counseling. (7) Effusion, pericardium: Code(s): I31.3 - Pericardial effusion (noninflammatory) Status: Acute Assessment and Plan: There is a small pericardial effusion without tamponade physiology. Subjective Date/time seen: 11/18/21 07:22 Review of Systems Review of Systems: All systems reviewed & are unremarkable except as noted in HPI and below Constitutional: Constitutional: Reports as per HPI, Reports no additional constitutional complaints, Reports difficulty sleeping, Reports fatigue and Reports lethargy Eyes: Eyes: Reports as per HPI and Reports no additional eye complaints ENT: Reports system reviewed and no additional complaints, except as documented, Reports as per HPI and Reports dizziness Cardiovascular: Cardiovascular: Reports as per HPI, Reports no additional cardiovascular complaints, Denies chest pain, Denies chest pain at rest, Denies chest pain with activity, Denies irregular heart rhythm, Reports palpitations, Reports dyspnea, Reports dyspnea on exertion and Reports orthopnea Respiratory: Respiratory: Reports as per HPI, Reports no additional respiratory complaints, Reports dyspnea and Reports dyspnea on exertion Gastrointestinal: Gastrointestinal: Reports as per HPI, Reports no additional gastrointestinal complaints, Reports abdominal pain, Reports nausea and Reports vomiting Genitourinary: Genitourinary: Reports as per HPI Musculoskeletal: Musculoskeletal: Reports no additional m
--- NOTE | 2021-11-18 08:23 | PM.IMPN ---
Progress Note: A&P Assessment and Plan (1) Acute CHF: Code(s): I50.9 - Heart failure, unspecified Status: Acute Assessment and Plan: Chest x-ray shows cardiomegaly and congestive heart with a basilar infiltrate. BNP was 4000. Echo showing EF 30% with abnormal diastolic function and moderate pulmonary HTN. Moderate MR noted. Could be related to uncontrolled hypertension. Consider also stress, viral or autoimmune/infiltative process. She is having clinical improvement with the IV Lasix. Cardiology following. Spironolactone, Entresto and Coreg started. Add Jardiance. Apnea link ordered. -11/18/21 Discussed with patient the importance of close follow up after discharge as her medications will likely need to be adjusted. Patient verbalized understanding of the plan. Carvedilol increased to 6.25 mg BID this morning by Cardiology. Continue spironolactone, Entresto and Jardiance. Furosemide held yesterday. UOP 8.3L w/ net negative 6.3L. Will continue to hold diuretic for discharge. Patient appears euvolemic. -Awaiting life vest and will be discharged home if life vest delivered today. (2) Hypertension, uncontrolled: Code(s): I10 - Essential (primary) hypertension Status: Acute Assessment and Plan: Blood pressure at home was reasonably well controlled with systolic running 130-140 up until just a few days ago. Unclear why her blood pressure is now markedly elevated at 190/137 on admission. BP lower but still not at goal. Follow with the above changes. Adjust slowly. -11/18/21 SBP 170s--> will give one time dose of hydraliazine 10 mg IV. -Carvedilol increased to 6.25 mg BID (3) Elevated troponin: Code(s): R77.8 - Other specified abnormalities of plasma proteins Status: Acute Assessment and Plan: Patient with mildly elevated troponin. Repeat troponin showing flat pattern. EKG showing poor R progression and lateral lead ST T wave changes. Probably related to the acute CHF. Doubt ACS. (4) Anasarca: Code(s): R60.1 - Generalized edema Status: Acute Assessment and Plan: Patient appears to have fluid overload by CT scan showing trace pericardial effusion, mild bilateral pleural effusions, abdominal wall edema and pelvic wall edema. No mention of ascites. UA not showing proteinuria. She has pedal edema noted on exam. [place] related to acute systolic and diastolic CHF. Consider amyloid or sarcoid in the differential. Will also consider SLE given the loss of her pregnancies. Check DOUG levels. PAXTON pending. Complement levels okay. She is agreeable for HIV test. Tolerating diuresis. -11/18 appears euvolemic. Last dose of furosemide 40 mg IV was given 11/16 and patient net negative 6.1L in last 24 hrs. Will continue to hold diuretics at this time. This morning PAXTON, HIV, kappa/lambda and ds DNA are all pending. Discussed that these are pending with the patient and that the results will likely not be completed until after discharge. (5) Iron deficiency anemia: Code(s): D50.9 - Iron deficiency anemia, unspecified Status: Acute Assessment and Plan: Patient noted to be iron deficient here. She has been on iron for this. Hemoglobin is 9.2 today which is improved from 7.8 in October. Iron restarted during this hospitalization. -11/18/21 h/h stable. Will monitor (6) Thyroid nodule: Code(s): E04.1 - Nontoxic single thyroid nodule Status: Acute Assessment and Plan: Possible thyroid nodule appreciated on exam. Thyroid ultrasound showing multinodular goiter. Ultrasound-guided fine-needle aspiration of 2 nodules is recommended. TSH normal. -11/18/21 planned for thyroid biopsy today. Discussed with patient that the results/pathology will return after discharge and that she will need to follow up the results with her primary care physician. (7) Adnexal mass: Code(s): N94.89 - Other specified conditions associated with female ge
[2021-11-18] MEDS: FERROUS SULFATE 324 MG TABLET PO ×2 (09:53→17:07)
[2021-11-18] MEDS: EMPAGLIFLOZIN 10 MG TABLET PO (09:54)
[2021-11-18] MEDS: carvediloL 6.25 MG TABLET PO ×2 (09:54→21:10)
[2021-11-18] MEDS: SACUBITRIL/VALSARTAN 24-26 MG TABLET 1 TAB PO ×2 (09:54→21:10)
[2021-11-18] MEDS: SPIRONOLACTONE 25 MG TABLET PO (09:55)
[2021-11-18 11:45] LABS: Anisocytosis 1+ (NORMAL); Ovalocytes 1+ (NORMAL); Platelet Estimate Adequate (Adequate); Poikilocytosis 1+ (NORMAL)
[2021-11-18] MEDS: hydrALAZINE HCL 20 MG/ML VIAL 10 MG IV PUSH (13:22)
[2021-11-18] MEDS: LACTATED RINGERS 1,000 ML 250 ML IV CONT (14:22)
[2021-11-18 16:03] LABS: HIV 1/2 Ab P24 Ag Result Negative (Negative)
[2021-11-18] MEDS: ACETAMINOPHEN 325 MG TABLET 650 MG PO (21:20)
[2021-11-19] VITALS (15 sets, daily range): BP systolic 124–142; BP diastolic 74–94; PULSE 7–85; RESP 12–20; TEMP 36.1–36.7; O2SAT 100
--- NOTE | 2021-11-19 07:21 | PM.PNCARD ---
Progress Note: A&P Assessment and Plan (1) Acute CHF: Code(s): I50.9 - Heart failure, unspecified Status: Acute Plan 41-year-old lady with newly diagnosed dilated cardiomyopathy probably related to untreated hypertension. She is currently on a reasonable starting regimen of carvedilol Entresto and Aldactone and seems to be doing very well. Awaiting to receive her life vest device. After she does she is a candidate for discharge in my opinion. She will follow-up in our office with Dr. Rosalia iL MD [facility] Subjective Date/time seen: Date of service: 11/19/21 07:21 Interval history: Follow-up visit in this 41-year-old lady with newly diagnosed cardiomyopathy. Patient has longstanding history of hypertension which was untreated as well as COVID infection last winter both of which could be playing a role with this. She feels well this morning and denies any complaints shortness of breath has resolved. Life vest has been ordered but not yet supplied to her Exam Const: General: comfortable and no acute distress Other: Very pleasant obese young lady no distress HENMT: Mouth: Yes moist mucous membranes Eyes: Sclera: sclerae normal Pupils: Equal, round and reactive pupils present Neck: Neck: supple Other: Very difficult to assess JVD given her body habitus Resp: Effort & Inspection: normal respiratory effort Auscultation: clear to auscultation bilaterally Other: No rales no wheezing Cardio: Rate: regular rate Rhythm: regular rhythm Other: PMI not palpable no murmur no gallop GI: GI Palp: Yes Soft to palpation Auscultation: normal bowel sounds Skin: General skin exam: normal color Neuro: Other: Normal cognition Extrem: Other: No edema at this time good distal pulses Objective Data Vital Signs Vital Signs: Vital Signs - 24 hr 11/18/21 08:00 11/18/21 08:00 11/18/21 08:48 Temperature 36.4 C L Pulse Rate 87 85 Respiratory Rate 20 Blood Pressure 145/104 H Pulse Oximetry 98 96 Oxygen Delivery Room Air 11/18/21 09:54 11/18/21 08:00 11/18/21 10:00 Temperature Pulse Rate 85 80 Respiratory Rate Blood Pressure Pulse Oximetry Oxygen Delivery Room Air 11/18/21 12:00 11/18/21 12:00 11/18/21 12:00 Temperature 35.8 C L Pulse Rate 86 70 Respiratory Rate 16 Blood Pressure 170/106 H Pulse Oximetry 98 Oxygen Delivery Room Air 11/18/21 14:05 11/18/21 14:05 11/18/21 14:00 Temperature Pulse Rate 48 L 65 Respiratory Rate Blood Pressure 101/73 101/73 Pulse Oximetry Oxygen Delivery 11/18/21 14:22 11/18/21 16:00 11/18/21 16:00 Temperature Pulse Rate 87 Respiratory Rate Blood Pressure 102/63 Pulse Oximetry Oxygen Delivery Room Air 11/18/21 16:00 11/18/21 20:00 11/18/21 20:00 Temperature 36.8 C 36.2 C L Pulse Rate 81 76 Respiratory Rate 20 20 Blood Pressure 138/82 135/85 Pulse Oximetry 100 100 Oxygen Delivery Room Air 11/18/21 20:00 11/18/21 21:10 11/18/21 22:00 Temperature Pulse Rate 77 83 71 Respiratory Rate Blood Pressure Pulse Oximetry Oxygen Delivery 11/18/21 23:17 11/18/21 23:26 11/19/21 00:00 Temperature 36.4 C Pulse Rate 71 65 Respiratory Rate 18 Blood Pressure 146/97 H Pulse Oximetry 100 Oxygen Delivery Room Air 11/19/21 02:00 11/19/21 04:00 11/19/21 04:00 Temperature Pulse Rate 62 69 Respiratory Rate Blood Pressure Pulse Oximetry Oxygen Delivery Room Air 11/19/21 04:00 11/19/21 06:00 Temperature 36.6 C Pulse Rate 62 64 Respiratory Rate 20 Blood Pressure 127/80 Pulse Oximetry 100 Oxygen Delivery Intake/Output Intake/Output: Intake & Output 11/16/21 11/17/21 11/18/21 11/19/21 23:59 23:59 23:59 23:59 Intake Total 120 1980 1120 800 Output Total 8300 4550 200 Balance 285 -9460 -7099 600 Meds/Results Medications: Active Medications Generic Name Dose Route Start
--- NOTE | 2021-11-19 08:02 | PM.IMPN ---
Progress Note: A&P Assessment and Plan (1) Acute CHF: Code(s): I50.9 - Heart failure, unspecified Status: Acute Assessment and Plan: Chest x-ray shows cardiomegaly and congestive heart with a basilar infiltrate. BNP was 4000. Echo showing EF 30% with abnormal diastolic function and moderate pulmonary HTN. Moderate MR noted. Could be related to uncontrolled hypertension. Consider also stress, viral or autoimmune/infiltative process. She is having clinical improvement with the IV Lasix. Cardiology following. Spironolactone, Entresto and Coreg started. Add Jardiance. Apnea link ordered. -11/18/21 Discussed with patient the importance of close follow up after discharge as her medications will likely need to be adjusted. Patient verbalized understanding of the plan. Carvedilol increased to 6.25 mg BID this morning by Cardiology. Continue spironolactone, Entresto and Jardiance. Furosemide held yesterday. UOP 8.3L w/ net negative 6.3L. Will continue to hold diuretic for discharge. Patient appears euvolemic. -Awaiting life vest and will be discharged home if life vest delivered today. 11/19/21 Patient improved with resolution of symptoms. Patient seen by Cardiology this morning who agrees patient cannot be discharged until the life vest is on the patient. Per care coordination the life vest will be delivered by November 22. (2) Hypertension, uncontrolled: Code(s): I10 - Essential (primary) hypertension Status: Acute Assessment and Plan: Blood pressure at home was reasonably well controlled with systolic running 130-140 up until just a few days ago. Unclear why her blood pressure is now markedly elevated at 190/137 on admission. BP lower but still not at goal. Follow with the above changes. Adjust slowly. -11/18/21 SBP 170s--> will give one time dose of hydralazine 10 mg IV. -Carvedilol increased to 6.25 mg BID Had drop in SBP to 100s with 10 mg of IV hydralazine and was diaphoretic. This should be avoided in the future or trying a lower dose. Pateint reported resolution of symptoms minutes after initial event. Bolus of LR 250cc was given and tolerated well. Will continue with current medications. (3) Elevated troponin: Code(s): R77.8 - Other specified abnormalities of plasma proteins Status: Acute Assessment and Plan: Patient with mildly elevated troponin. Repeat troponin showing flat pattern. EKG showing poor R progression and lateral lead ST T wave changes. Probably related to the acute CHF. Doubt ACS. (4) Anasarca: Code(s): R60.1 - Generalized edema Status: Acute Assessment and Plan: Patient appears to have fluid overload by CT scan showing trace pericardial effusion, mild bilateral pleural effusions, abdominal wall edema and pelvic wall edema. No mention of ascites. UA not showing proteinuria. She has pedal edema noted on exam. [place] related to acute systolic and diastolic CHF. Consider amyloid or sarcoid in the differential. Will also consider SLE given the loss of her pregnancies. Check DOUG levels. PAXTON pending. Complement levels okay. She is agreeable for HIV test. Tolerating diuresis. -11/18 appears euvolemic. Last dose of furosemide 40 mg IV was given 11/16 and patient net negative 6.1L in last 24 hrs. Will continue to hold diuretics at this time. This morning PAXTON, HIV, kappa/lambda and ds DNA are all pending. Discussed that these are pending with the patient and that the results will likely not be completed until after discharge. 11/20/21 net negative 3.4L yesterday without diuretics. Discontinue furosemide this morning. Appears euvolemic. Will monitor. (5) Iron deficiency anemia: Code(s): D50.9 - Iron deficiency anemia, unspecified Status: Acute Assessment and Plan: Patient noted to be iron deficient here. She has been on iron for this. Hemoglobin is 9.2 today which is improved from 7.8 in October. Iron resta
[2021-11-19] MEDS: ASPIRIN 81 MG CHEWABLE TABLET PO (08:19)
[2021-11-19] MEDS: carvediloL 6.25 MG TABLET PO ×2 (08:19→20:11)
[2021-11-19] MEDS: SPIRONOLACTONE 25 MG TABLET PO (08:20)
[2021-11-19] MEDS: SACUBITRIL/VALSARTAN 24-26 MG TABLET 1 TAB PO ×2 (08:20→20:12)
[2021-11-19] MEDS: ENOXAPARIN 40 MG/0.4 ML SYRINGE SUB-Q (08:20)
[2021-11-19] MEDS: EMPAGLIFLOZIN 10 MG TABLET PO (08:20)
[2021-11-19] MEDS: FERROUS SULFATE 324 MG TABLET PO ×2 (08:20→16:01)
[2021-11-20] VITALS (15 sets, daily range): BP systolic 112–146; BP diastolic 72–90; PULSE 60–90; RESP 12–20; TEMP 36.1–36.5; O2SAT 96–100
[2021-11-20 04:58] LABS: Anion Gap 5 mmol/L (8-16); Blood Urea Nitrogen 15 mg/dL (7-17); Calcium 8.6 mg/dL (8.4-10.2); Carbon Dioxide 28 mmol/L (22-30); Chloride 104 mmol/L (98-107); Estimated CRCL calculation 68 ml/min; Estimated Glomerular Filt Rate > 60; Glucose 100 mg/dL (65-110); Potassium 3.7 mmol/L (3.4-5.0); Sodium 137 mmol/L (137-145)
--- NOTE | 2021-11-20 08:01 | PM.IMPN ---
Progress Note: A&P Assessment and Plan (1) Acute CHF: Code(s): I50.9 - Heart failure, unspecified Status: Acute Assessment and Plan: Chest x-ray shows cardiomegaly and congestive heart with a basilar infiltrate. BNP was 4000. Echo showing EF 30% with abnormal diastolic function and moderate pulmonary HTN. Moderate MR noted. Could be related to uncontrolled hypertension. Consider also stress, viral or autoimmune/infiltative process. She is having clinical improvement with the IV Lasix. Cardiology following. Spironolactone, Entresto and Coreg started. Add Jardiance. Apnea link ordered. -11/18/21 Discussed with patient the importance of close follow up after discharge as her medications will likely need to be adjusted. Patient verbalized understanding of the plan. Carvedilol increased to 6.25 mg BID this morning by Cardiology. Continue spironolactone, Entresto and Jardiance. Furosemide held yesterday. UOP 8.3L w/ net negative 6.3L. Will continue to hold diuretic for discharge. Patient appears euvolemic. -Awaiting life vest and will be discharged home if life vest delivered today. 11/19/21 Patient improved with resolution of symptoms. Patient seen by Cardiology this morning who agrees patient cannot be discharged until the life vest is on the patient. Per care coordination the life vest will be delivered by November 22. 11/20/21 Awaiting life vest. No changes at this time. Patient is clinically improved. (2) Hypertension, uncontrolled: Code(s): I10 - Essential (primary) hypertension Status: Acute Assessment and Plan: Blood pressure at home was reasonably well controlled with systolic running 130-140 up until just a few days ago. Unclear why her blood pressure is now markedly elevated at 190/137 on admission. BP lower but still not at goal. Follow with the above changes. Adjust slowly. -11/18/21 SBP 170s--> will give one time dose of hydralazine 10 mg IV. -Carvedilol increased to 6.25 mg BID Had drop in SBP to 100s with 10 mg of IV hydralazine and was diaphoretic. This should be avoided in the future or trying a lower dose. Pateint reported resolution of symptoms minutes after initial event. Bolus of LR 250cc was given and tolerated well. Will continue with current medications. 11/20/21 BP controlled well with carvedilol and Aldactone. (3) Elevated troponin: Code(s): R77.8 - Other specified abnormalities of plasma proteins Status: Acute Assessment and Plan: Patient with mildly elevated troponin. Repeat troponin showing flat pattern. EKG showing poor R progression and lateral lead ST T wave changes. Probably related to the acute CHF. Doubt ACS. (4) Anasarca: Code(s): R60.1 - Generalized edema Status: Acute Assessment and Plan: Patient appears to have fluid overload by CT scan showing trace pericardial effusion, mild bilateral pleural effusions, abdominal wall edema and pelvic wall edema. No mention of ascites. UA not showing proteinuria. She has pedal edema noted on exam. [place] related to acute systolic and diastolic CHF. Consider amyloid or sarcoid in the differential. Will also consider SLE given the loss of her pregnancies. Check DOUG levels. PAXTON pending. Complement levels okay. She is agreeable for HIV test. Tolerating diuresis. -11/18 appears euvolemic. Last dose of furosemide 40 mg IV was given 11/16 and patient net negative 6.1L in last 24 hrs. Will continue to hold diuretics at this time. This morning PAXTON, HIV, kappa/lambda and ds DNA are all pending. Discussed that these are pending with the patient and that the results will likely not be completed until after discharge. 11/19/21 net negative 3.4L yesterday without diuretics. Discontinue furosemide this morning. Appears euvolemic. Will monitor. 11/20/21 net positive and had increased intake. Will monitor. (5) Iron deficiency anemia: Code(s): D50.9 - Iron deficie
[2021-11-20] MEDS: ASPIRIN 81 MG CHEWABLE TABLET PO (09:22)
[2021-11-20] MEDS: SACUBITRIL/VALSARTAN 24-26 MG TABLET 1 TAB PO ×2 (09:22→20:47)
[2021-11-20] MEDS: FERROUS SULFATE 324 MG TABLET PO ×2 (09:22→18:09)
[2021-11-20] MEDS: carvediloL 6.25 MG TABLET PO ×2 (09:22→20:47)
[2021-11-20] MEDS: SPIRONOLACTONE 25 MG TABLET PO (09:22)
[2021-11-20] MEDS: ENOXAPARIN 40 MG/0.4 ML SYRINGE SUB-Q (09:22)
[2021-11-20] MEDS: EMPAGLIFLOZIN 10 MG TABLET PO (09:22)
[2021-11-20] MEDS: POTASSIUM CHLORIDE 10 MEQ TABLET 20 MEQ PO (09:25)
--- NOTE | 2021-11-20 11:00 | PM.PNCARD ---
Progress Note: A&P Assessment and Plan (1) Acute heart failure with reduced ejection fraction and diastolic dysfunction: Code(s): I50.41 - Acute combined systolic (congestive) and diastolic (congestive) heart failure Status: Acute Plan Patient with systolic cardiomyopathy hypertensive possibly post viral in etiology. She has been started on guideline directed medical therapy and is stable. Discharge is pending patient being supplied with her life vest device. Hopefully that will happen tomorrow. Follow up in the office will be scheduled with Dr. Rosalia Li MD [facility] Subjective Date/time seen: Date of service: 11/20/21 11:00 Interval history: Follow-up visit in this 41-year-old lady with newly diagnosed cardiomyopathy. Etiology is likely a combination of hypertension and or recent coronavirus infection. She has been started on guideline directed medical therapy. LifeVest has been ordered and not yet supplied. Asymptomatic this morning feels well. Exam Const: General: comfortable and no acute distress Other: Very pleasant obese lady no distress of any kind HENMT: Mouth: Yes moist mucous membranes Eyes: Sclera: sclerae normal Pupils: Equal, round and reactive pupils present Neck: Neck: supple and no JVD Resp: Effort & Inspection: normal respiratory effort Auscultation: clear to auscultation bilaterally Other: Clear breath sounds no rales no rhonchi no wheezes Cardio: Rate: regular rate Rhythm: regular rhythm Other: No murmur no gallop GI: GI Palp: Yes Soft to palpation Auscultation: normal bowel sounds Skin: General skin exam: normal color Neuro: Other: Normal cognition Extrem: General: normal to inspection Objective Data Vital Signs Vital Signs: Vital Signs - 24 hr 11/19/21 12:13 11/19/21 12:00 11/19/21 12:00 Temperature 36.7 C Pulse Rate 7 L 65 Respiratory Rate 16 Blood Pressure 135/81 Pulse Oximetry 100 Oxygen Delivery Room Air 11/19/21 14:00 11/19/21 16:00 11/19/21 16:00 Temperature Pulse Rate 74 77 Respiratory Rate Blood Pressure Pulse Oximetry Oxygen Delivery Room Air 11/19/21 16:00 11/19/21 18:00 11/19/21 20:00 Temperature 36.7 C 36.1 C L Pulse Rate 64 80 74 Respiratory Rate 16 18 Blood Pressure 140/89 124/74 Pulse Oximetry 100 100 Oxygen Delivery 11/19/21 20:11 11/19/21 20:00 11/19/21 20:00 Temperature Pulse Rate 82 75 Respiratory Rate Blood Pressure Pulse Oximetry Oxygen Delivery Room Air 11/19/21 21:56 11/19/21 23:27 11/19/21 23:30 Temperature 36.4 C Pulse Rate 79 85 Respiratory Rate 18 Blood Pressure 137/74 Pulse Oximetry 100 Oxygen Delivery Room Air 11/20/21 00:00 11/20/21 01:59 11/20/21 03:03 Temperature Pulse Rate 72 60 Respiratory Rate Blood Pressure Pulse Oximetry Oxygen Delivery Room Air 11/20/21 03:09 11/20/21 04:00 11/20/21 06:00 Temperature 36.4 C Pulse Rate 67 62 86 Respiratory Rate 18 Blood Pressure 112/82 Pulse Oximetry 100 Oxygen Delivery 11/20/21 08:00 Temperature 36.5 C Pulse Rate 71 Respiratory Rate 16 Blood Pressure 126/72 Pulse Oximetry 100 Oxygen Delivery Intake/Output Intake/Output: Intake & Output 11/17/21 11/18/21 11/19/21 11/20/21 23:59 23:59 23:59 23:59 Intake Total 1980 1120 1890 740 Output Total 8300 4550 4000 387 Qegripp -7275 -0191 290 290 Meds/Results Medications: Active Medications Generic Name Dose Route Start Last Admin Trade Name Krista PRN Reason Stop Dose Admin Acetaminophen 650 mg 11/17/21 12:00 11/18/21 21:20 Acetaminophen 325 Mg Tablet PO 650 mg Q6H PRN Administration Mild Pain (1-3) or Fever Aspirin 81 mg 11/17/21 08:00 11/20/21 09:22 Aspirin 81 Mg Chewable Tablet PO 81 mg DAILY@0800 CLAIR Administration Carvedilol 6.25 mg 11/18/21 09:00 11/20/21 09:22 Carvedilol 6.25 Mg Tablet PO 6.25 mg Q12HR CLAIR
[2021-11-21] VITALS (10 sets, daily range): BP systolic 117–130; BP diastolic 72–82; PULSE 60–89; RESP 16–20; TEMP 36.2–36.9; O2SAT 99–100
--- NOTE | 2021-11-21 08:12 | PM.DS ---
DS: Admitting Diagnosis Discharge Date 11/21/21 Admitting Diagnosis Shortness of breath. DS: Discharge Diagnosis Discharge Diagnosis (1) Acute CHF: Code(s): I50.9 - Heart failure, unspecified Status: Acute Assessment and Plan: Chest x-ray shows cardiomegaly and congestive heart with a basilar infiltrate. BNP was 4000. Echo showing EF 30% with abnormal diastolic function and moderate pulmonary HTN. Moderate MR noted. Could be related to uncontrolled hypertension. Consider also stress, viral or autoimmune/infiltative process. She is having clinical improvement with the IV Lasix. Cardiology following. Spironolactone, Entresto and Coreg started. Add Jardiance. Apnea link ordered. -11/18/21 Discussed with patient the importance of close follow up after discharge as her medications will likely need to be adjusted. Patient verbalized understanding of the plan. Carvedilol increased to 6.25 mg BID this morning by Cardiology. Continue spironolactone, Entresto and Jardiance. Furosemide held yesterday. UOP 8.3L w/ net negative 6.3L. Will continue to hold diuretic for discharge. Patient appears euvolemic. -Awaiting life vest and will be discharged home if life vest delivered today. 11/19/21 Patient improved with resolution of symptoms. Patient seen by Cardiology this morning who agrees patient cannot be discharged until the life vest is on the patient. Per care coordination the life vest will be delivered by November 22. 11/20/21 Awaiting life vest. No changes at this time. Patient is clinically improved. 11/21/21 Patient fitted for lifevest. Discharge to home. (2) Hypertension, uncontrolled: Code(s): I10 - Essential (primary) hypertension Status: Acute Assessment and Plan: Blood pressure at home was reasonably well controlled with systolic running 130-140 up until just a few days ago. Unclear why her blood pressure is now markedly elevated at 190/137 on admission. BP lower but still not at goal. Follow with the above changes. Adjust slowly. -11/18/21 SBP 170s--> will give one time dose of hydralazine 10 mg IV. -Carvedilol increased to 6.25 mg BID Had drop in SBP to 100s with 10 mg of IV hydralazine and was diaphoretic. This should be avoided in the future or trying a lower dose. Pateint reported resolution of symptoms minutes after initial event. Bolus of LR 250cc was given and tolerated well. Will continue with current medications. 11/20/21 BP controlled well with carvedilol and Aldactone. 11/21/21 BP controlled. Will discharge with spironolactone and carvedilol. (3) Elevated troponin: Code(s): R77.8 - Other specified abnormalities of plasma proteins Status: Acute Assessment and Plan: Patient with mildly elevated troponin. Repeat troponin showing flat pattern. EKG showing poor R progression and lateral lead ST T wave changes. Probably related to the acute CHF. Doubt ACS. (4) Anasarca: Code(s): R60.1 - Generalized edema Status: Acute Assessment and Plan: Patient appears to have fluid overload by CT scan showing trace pericardial effusion, mild bilateral pleural effusions, abdominal wall edema and pelvic wall edema. No mention of ascites. UA not showing proteinuria. She has pedal edema noted on exam. [place] related to acute systolic and diastolic CHF. Consider amyloid or sarcoid in the differential. Will also consider SLE given the loss of her pregnancies. Check DOUG levels. PAXTON pending. Complement levels okay. She is agreeable for HIV test. Tolerating diuresis. -11/18 appears euvolemic. Last dose of furosemide 40 mg IV was given 11/16 and patient net negative 6.1L in last 24 hrs. Will continue to hold diuretics at this time. This morning PAXTON, HIV, kappa/lambda and ds DNA are all pending. Discussed that these are pending with the patient and that the results will likely not be completed until after discharge. 11/19/21 net negative 3.4L
--- NOTE | 2021-11-21 08:12 | PM.IMPN ---
Subjective Date/time seen: 11/21/21 08:12 Objective Data Vital Signs Vital Signs: Vital Signs - 24 hr 11/20/21 12:00 11/20/21 10:00 11/20/21 12:00 Temperature 97.6 F Pulse Rate 75 77 90 Respiratory Rate 18 Blood Pressure 115/80 Pulse Oximetry 100 Oxygen Delivery 11/20/21 14:00 11/20/21 16:00 11/20/21 16:00 Temperature 97.6 F Pulse Rate 83 61 70 Respiratory Rate 12 Blood Pressure 121/81 Pulse Oximetry 96 Oxygen Delivery 11/20/21 18:00 11/20/21 20:00 11/20/21 20:47 Temperature 97.1 F L Pulse Rate 69 80 68 Respiratory Rate 20 Blood Pressure 112/78 Pulse Oximetry 100 Oxygen Delivery 11/20/21 20:00 11/20/21 20:00 11/20/21 22:00 Temperature Pulse Rate 74 74 67 Respiratory Rate 20 Blood Pressure Pulse Oximetry 100 Oxygen Delivery Room Air 11/20/21 23:26 11/21/21 00:00 11/21/21 00:00 Temperature 96.9 F L Pulse Rate 77 61 61 Respiratory Rate 18 18 Blood Pressure 146/90 H Pulse Oximetry 100 100 Oxygen Delivery Room Air 11/21/21 02:00 11/21/21 04:00 11/21/21 04:00 Temperature 98.4 F Pulse Rate 66 89 67 Respiratory Rate 20 Blood Pressure 127/72 Pulse Oximetry 99 Oxygen Delivery 11/21/21 04:00 11/21/21 06:00 11/21/21 08:00 Temperature 97.8 F Pulse Rate 67 67 70 Respiratory Rate 20 16 Blood Pressure 122/81 Pulse Oximetry 99 100 Oxygen Delivery Room Air Intake/Output Intake/Output: Intake & Output 11/18/21 11/19/21 11/20/21 11/21/21 23:59 23:59 23:59 23:59 Intake Total 1120 1890 1640 500 Output Total 4550 1600 2750 550 Balance -0900 290 -1110 -50 Meds/Results Medications: Active Medications Generic Name Dose Route Start Last Admin Trade Name Freq PRN Reason Stop Dose Admin Acetaminophen 650 mg 11/17/21 12:00 11/18/21 21:20 Acetaminophen 325 Mg Tablet PO 650 mg Q6H PRN Administration Mild Pain (1-3) or Fever Aspirin 81 mg 11/17/21 08:00 11/20/21 09:22 Aspirin 81 Mg Chewable Tablet PO 81 mg DAILY@0800 CLAIR Administration Carvedilol 6.25 mg 11/18/21 09:00 11/20/21 20:47 Carvedilol 6.25 Mg Tablet PO 6.25 mg Q12HR CLAIR Administration Empagliflozin 10 mg 11/18/21 09:00 11/20/21 09:22 Empagliflozin 10 Mg Tablet PO 10 mg DAILY CLAIR Administration Enoxaparin Sodium 40 mg 11/17/21 09:00 11/20/21 09:22 Enoxaparin 40 Mg/0.4 Ml Syringe SUB-Q 40 mg DAILY CLAIR Administration Ferrous Sulfate 324 mg 11/18/21 08:00 11/20/21 18:09 Ferrous Sulfate 324 Mg Tablet PO 324 mg BIDWM CLAIR Administration Sacubitril/Valsartan 1 tab 11/17/21 21:00 11/20/21 20:47 Sacubitril/Valsartan 24-26 Mg Tablet PO 1 tab Q12HR CLAIR Administration Spironolactone 25 mg 11/18/21 09:00 11/20/21 09:22 Spironolactone 25 Mg Tablet PO 25 mg QAM CLAIR Administration Radiology Results: ITS Impressions Abdomen/Pelvis CT 11/16/21 08:46 IMPRESSION: Cardiomegaly, mild bilateral pleural effusions, edema of the abdominal and pelvic sawant, consistent with probable congestive heart failure Trace pericardial effusion 5 mm right lower lobe pulmonary nodule Atelectasis at the lung bases, greater on the left Possible thickening of the gallbladder wall; gallbladder would be better evaluated by ultrasound examination No urinary tract calculus or hydroureteronephrosis Enlarged uterus 5.5 cm left adnexal soft tissue mass; diffusion diagnosis includes ovarian mass and subserosal uterine fibroid; consider pelvic ultrasound examination Lumbar spinal stenosis Probable 1.4 cm bone island of L4 Chest X-Ray 11/16/21 10:10 IMPRESSION: Cardiomegaly, congestive heart failure Mild bibasilar infiltrate or atelectasis Pelvis Ultrasound 11/16/21 14:15 IMPRESSION: 1. Enlarged fibroid uterus, largest being exophytic measuring up to 7.5 cm, likely corresponding to the recent CT finding. Abdomen Ultrasound 11/16/21 14:23 IMPRESSION: 1:
[2021-11-21] MEDS: ASPIRIN 81 MG CHEWABLE TABLET PO (08:17)
[2021-11-21] MEDS: EMPAGLIFLOZIN 10 MG TABLET PO (08:17)
[2021-11-21] MEDS: SPIRONOLACTONE 25 MG TABLET PO (08:17)
[2021-11-21] MEDS: carvediloL 6.25 MG TABLET PO (08:17)
[2021-11-21] MEDS: SACUBITRIL/VALSARTAN 24-26 MG TABLET 1 TAB PO (08:17)
[2021-11-21] MEDS: FERROUS SULFATE 324 MG TABLET PO ×2 (08:18→17:52)
[2021-11-21] MEDS: ENOXAPARIN 40 MG/0.4 ML SYRINGE SUB-Q (08:18)
--- NOTE | 2021-11-21 10:55 | PM.PNCARD ---
Progress Note: A&P Assessment and Plan (1) Acute heart failure with reduced ejection fraction and diastolic dysfunction: Code(s): I50.41 - Acute combined systolic (congestive) and diastolic (congestive) heart failure Status: Acute Assessment and Plan: New diagnosis severe LV systolic dysfunction EF 30% with moderate concentric LVH, mild LV enlargement moderate left atrial enlargement [id number] MR mild TR moderate pulmonary hypertension RVSP 59 mm Hg. Right ventricular size and systolic function within normal limits. Clinically, patient is much improved following IV diuresis and appears euvolemic on exam today. Optimize guideline directed medical therapy with Entresto, spironolactone, Jardiance, coreg. Discussed the concept of LifeVest with her, she wishes to proceed with this. LifeVest order placed. Consider cardiac MRI as outpatient further workup. Agree with additional workup for amyloid/sarcoid, lupus given history of recurrent miscarriages and CT findings. AHI 10 on apnea link. Recommend OP sleep study. Close outpatient follow up OK for discharge once LifeVest has been fitted. (2) Hypertension, uncontrolled: Code(s): I10 - Essential (primary) hypertension Status: Acute Assessment and Plan: Now at goal. (3) Elevated troponin: Code(s): R77.8 - Other specified abnormalities of plasma proteins Status: Acute Assessment and Plan: Mild flat troponin elevation not consistent with acute coronary syndrome and/or plaque rupture likely secondary to severe LV dysfunction, CHF, and uncontrolled hypertension presentation type 2 infarction. (4) Iron deficiency anemia: Code(s): D50.9 - Iron deficiency anemia, unspecified Status: Acute Assessment and Plan: Iron supplementation. Workup and management per primary service. (5) History of COVID-19: Code(s): Z86.16 - Personal history of COVID-19 Status: Acute Assessment and Plan: Unclear how this relates to her LV dysfunction possible contribution due to COVID with reported history of longstanding shortness of breath subsequently although worsening prior to admission. (6) Morbid obesity with BMI of 45.0-49.9, adult: Code(s): E66.01 - Morbid (severe) obesity due to excess calories; Z68.42 - Body mass index [BMI] 45.0-49.9, adult Status: Acute Assessment and Plan: Lifestyle and diet modification counseling. (7) Effusion, pericardium: Code(s): I31.3 - Pericardial effusion (noninflammatory) Status: Acute Assessment and Plan: There is a small pericardial effusion without tamponade physiology. Plan Patient with systolic cardiomyopathy hypertensive possibly post viral in etiology. She has been started on guideline directed medical therapy and is stable. Discharge is pending patient being supplied with her life vest device. Hopefully that will happen tomorrow. Follow up in the office will be scheduled with Dr. Rosalia Li MD [facility] Subjective Date/time seen: 11/21/21 10:55 Cardiology follow up for CHF Interval history: Follow-up visit in this 41-year-old lady with newly diagnosed cardiomyopathy. Continues to feel well today. No shortness of breath, orthopnea, swelling. Remains hospitalized awaiting lifevest placement. Review of Systems Review of Systems: All systems reviewed & are unremarkable except as noted in HPI and below Constitutional: Constitutional: Reports as per HPI, Reports no additional constitutional complaints, Reports difficulty sleeping, Reports fatigue and Reports lethargy Eyes: Eyes: Reports as per HPI and Reports no additional eye complaints ENT: Reports system reviewed and no additional complaints, except as documented, Reports as per HPI and Reports dizziness Cardiovascular: Cardiovascular: Reports as per HPI, Reports no additional cardiovascular complaints, Denies chest pain, Denies chest pain at
[2021-11-22 19:18] LABS: Complement Total CH50 >60 U/mL (31-60)
[2021-11-23 08:40] LABS: Kappa\\Lambda Light Chains 0.98 (0.26-1.65)
[2021-11-23 15:20] LABS: Angiotensin Converting Enzyme 25.1 U/L (9-67)
== END 2021-11-21 19:47 | disposition home or self-care (01) | DRG 291 ==
LOC: ANHED 07:18 → ANHIMU 17:33
PROVIDERS: Emergency Medicine; Admitting Provider Internal Medicine; Emergency Provider Emergency Medicine; Visit Provider Family Medicine
DX: I11.0 Hypertensive heart disease with heart failure (principal); I50.41 Acute combined systolic (congestive) and diastolic (congestive) heart failure; Z68.42 Body mass index [BMI] 45.0-49.9, adult; I31.3 Pericardial effusion (noninflammatory); I42.0 Dilated cardiomyopathy; I08.1 Rheumatic disorders of both mitral and tricuspid valves; E66.01 Morbid (severe) obesity due to excess calories; Z20.822 Contact with and (suspected) exposure to COVID-19; I27.20 Pulmonary hypertension, unspecified; R77.8 Other specified abnormalities of plasma proteins; R60.1 Generalized edema; D50.9 Iron deficiency anemia, unspecified; E04.1 Nontoxic single thyroid nodule; G47.9 Sleep disorder, unspecified; K76.89 Other specified diseases of liver; N94.89 Other specified conditions associated with female genital organs and menstrual cycle; R79.89 Other specified abnormal findings of blood chemistry; R91.1 Solitary pulmonary nodule; M48.061 Spinal stenosis, lumbar region without neurogenic claudication; Z86.16 Personal history of COVID-19; Z91.14 Patient's other noncompliance with medication regimen
CPT/HCPCS: 10005; 10006; 36415; 36600; 71045; 71046; 74176; 74183; 76376; 76536; 76705; 76856; 80048; 80053; 81003; 81025; 82164; 82607; 82728; 82746; 82805; 83540; 83550; 83735; 83880; 83883; 84443; 84484; 85025; 85055; 85610; 85730; 86038; 86140; 86160; 86162; 86225; 86703; 86705; 86706; 86803; 87340; 88173; 88305; 93005; 94762; 96374; 96375; 99285; A9270; A9577; C8929; C9803; G0432; J0131; J0360; J1650; J1940; J2060; J7120; Q9957; U0003; U0005

== ENCOUNTER 2022-01-06 16:59 | Outpatient (CLI) | payer BC, SELFPAY ==
[2022-01-06 17:21] LABS: Hemoglobin 12.3 g/dL (12.0-15.0); Mean Corpuscular Hemoglobin 25.4 pg (26-34); Mean Corpuscular Volume 84.7 fl (80-100); Platelet Count Result 363 k/mm3 (150-375); Red Blood Count 4.84 M/mm3 (4.2-5.4); Red Cell Distribution Width 26.5 % (11.5-14.5)
[2022-01-06 17:34] LABS: Anion Gap 13 mmol/L (8-16); Blood Urea Nitrogen 20 mg/dL (7-17); Calcium 9.3 mg/dL (8.4-10.2); Carbon Dioxide 28 mmol/L (22-30); Chloride 98 mmol/L (98-107); Estimated Glomerular Filt Rate > 60; Glucose 82 mg/dL (65-110); Potassium 4.2 mmol/L (3.4-5.0); Sodium 139 mmol/L (137-145)
== END 2022-01-06 17:00 | disposition home or self-care (01) ==
LOC: ANHLAB 17:02
PROVIDERS: Visit Provider Nurse Practitioner Adult Health
DX: I42.0 Dilated cardiomyopathy (principal); D50.9 Iron deficiency anemia, unspecified
CPT/HCPCS: 36415; 80048; 85027

== ENCOUNTER 2022-04-06 18:00 | Outpatient (RCR) | payer BC, SELFPAY | END 2022-05-09 12:04 | disposition home or self-care (01) | LOC: ANHCPREHAB 18:00 | PROVIDERS: Visit Provider Nurse Practitioner Adult Health | DX: I50.89 Other heart failure (principal) | CPT/HCPCS: 93798 ==

== ENCOUNTER 2023-03-08 09:58 | Outpatient (CLI) | payer BC, SELFPAY ==
[2023-03-08 16:20] LABS: Cholesterol 217 mg/dL (0-200); HDL Direct 31 mg/dL; Triglycerides 108 mg/dL (<150)
[2023-03-08 16:33] LABS: LDL Cholesterol Direct 143 mg/dL
== END 2023-03-08 09:59 | disposition home or self-care (01) ==
LOC: ANHLAB 10:00
PROVIDERS: PCP Nurse Practitioner Family; Visit Provider Internal Medicine Cardiovascular Disease
DX: E78.2 Mixed hyperlipidemia (principal)
CPT/HCPCS: 36415; 80061